=== PATIENT | male | born 1960 | race Caucasian/White ===

== ENCOUNTER 2017-12-07 10:36 | Emergency (ER) | payer OTHER ==
[~2017-12-07] VITALS: Ht 182.9 cm; Wt 72.6 kg
[~2017-12-07 10:36] MED LIST: ALBU90OI61 INH; BACITO TP; CYCL10 PO; HYDACE5 PO; HYDR1TAB94 PO; METPRE4DP PO; OXYACE5T PO; OXYACE7.5T PO; PRED20 PO; RXOXYACE PO; SPACE CHAMBER1 EACH MC; Zithromax250 MG PO
[2017-12-07] MEDS ORDERED: Ultram50 MG PO (11:18)
[2017-12-07] MEDS ORDERED: Robaxin500 MG PO (11:18)
[2017-12-07] MEDS ORDERED: METPRE4DP PO (11:18)
== END 2017-12-07 11:32 | disposition home or self-care (01) ==
LOC: ER 10:36
DX: M54.41 Lumbago with sciatica, right side (principal); G89.29 Other chronic pain; Z87.891 Personal history of nicotine dependence
CPT/HCPCS: 96372; 99283; J1885

== ENCOUNTER 2019-08-25 14:04 | Observation (INO) | payer OTHER ==
[~2019-08-25] VITALS: Ht 188 cm; Wt 70.1 kg
[~2019-08-25 14:04] MED LIST changes: +ALBU90OI INH; +ROBITUSSIN COU237 ML PO; +Robaxin500 MG PO; +Ultram50 MG PO
[2019-08-25 14:32] LABS: BASOPHILS ABSOLUTE AUTO 0.06 K/mm3 (0.00-0.23); BASOPHILS PERCENT AUTO 0 % (0-2); EOSINOPHILS ABSOLUTE AUTO 0.12 K/mm3 (0.00-0.68); EOSINOPHILS PERCENT AUTO 1 % (0-6); Hematocrit 42.7 % (37.0-53.0); Hemoglobin 14.2 g/dL (13.5-17.5); IMMATURE GRAN PERCENT AUTO 1 % (0-1); LYMPHOCYTES ABSOLUTE AUTO 3.16 K/mm3 (0.84-5.20); LYMPHOCYTES PERCENT AUTO 24 % (21-46); MONOCYTES ABSOLUTE AUTO 0.85 K/mm3 (0.16-1.47); MONOCYTES PERCENT AUTO 6 % (4-13); Mean Corpuscular HGB 29.5 pg (26.0-34.0); Mean Corpuscular HGB Conc 33.3 g/dL (31.5-36.5); Mean Corpuscular Volume 89 fL (80-100); Mean Platelet Volume 9.5 fL (9.1-12.4); NEUTROPHILS ABSOLUTE AUTO 9.18 K/mm3 (1.96-9.15); NEUTROPHILS PERCENT AUTO 68 % (41-73); Platelet Count 282 K/mm3 (150-400); RDW Coefficient Variation 12.3 % (11.7-14.2); RDW Standard Deviation 40.1 fL (35.1-46.3); Red Blood Cell Count 4.81 M/mm3 (4.30-5.90); White Blood Cell Count 13.47 K/mm3 (4.00-11.30)
[2019-08-25 14:50] LABS: International Normalized Ratio 1.04; Prothrombin Time Results 11.1 Sec (9.7-11.5)
[2019-08-25 14:55] LABS: Alanine Aminotransfer (ALT/SGP 44 U/L (12-78); Albumin, Blood 4.3 g/dL (3.4-5.0); Albumin/Globulin Ratio 1.5 (0.8-1.8); Alk Phos 62 U/L (50-136); Anion Gap 4 mmol/L (6-16); Aspartate Aminotrans (AST/SGOT 49 U/L (12-37); Bilirubin, Total 0.5 mg/dL (0.1-1.0); Blood Urea Nitrogen 16 mg/dL (8-24); Bun/Creatinine Ratio 16.2 (12.0-20.0); CO2, Blood 27 mmol/L (21-32); Calcium, Blood 8.8 mg/dL (8.5-10.1); Chloride, Blood 106 mmol/L (98-108); Creatinine, Blood 0.99 mg/dL (0.60-1.20); Globulin, Blood 2.9 g/dL (2.2-4.0); Glomerular Filtration Rate >60 (60-); Glucose, Blood 146 mg/dL (70-99); Potassium, Blood 3.6 mmol/L (3.5-5.5); Sodium, Blood 137 mmol/L (136-145); Total Protein, Blood 7.2 g/dL (6.4-8.2)
--- NOTE | 2019-08-25 19:52 | NUR ---
SUMMARY PT IS A&O X4, VSS, RESP SHALLOW DUE TO INCREASED PAIN. O2 SATS REMAIN >95% ON RA. PT MEDICATED FOR PAIN/NAUSEA X1. ADMISSION ASSESSMENT COMPLETED. REPORT GIVEN TO MARK RN. CALL LIGHT IN REACH
--- NOTE | 2019-08-26 04:21 | NUR ---
PT VSS T/O NIGHT; SATS >93% ON RA. RESP SHALLOW, DEEP BREATHING EXERCISES ENCOURAGED. PT REMAINS QUITE PAINFUL W/MVMT, PAIN MGD W/IV DILAUDID W/REP RELIEF. ATTEMPTED PO PAIN MEDS, HOWEVER, PT HAD N/V W/PO INTAKE. ZOFRAN GIVEN X2. PT WAS ABLE TO KEEP FEW CRACKERS AND FLUIDS DOWN LATER IN NIGHT. PT USING CALL LIGHT FOR ASSISTANCE. PLAN FOR REPEAT CXR THIS AM. WILL CONT TO MONITOR UNTIL REP GIVEN TO DAY RN.
--- NOTE | 2019-08-26 15:35 | NUR ---
SUMMARY: NO ACUTE CHANGE TODAY. A/O, VSS. PT CONTINUES TO HAVE PAIN WITH MOVEMENT AND INTERMITTANT NAUSEA. MEDICATED PER EMAR. ENCOURAGING MOVEMENT. PT ABLE TO SIT AT SIDE OF BED X2 AND RECEIVED BEDBATH AFTER BEING PREMEDICATED WITH DILAUDID. PT MOM AT BEDSIDE. WILL CTM AND REPORT TO MARK CRAIG.
--- NOTE | 2019-08-27 07:25 | NUR ---
recvd report from previous shift RN Alysia, pt lying in bed, a/o x 4, pleasant/cooperative, bed rails up x 2, bed in lowest position, call light within reach
--- NOTE | 2019-08-27 09:50 | NUR ---
PT working with patient
--- NOTE | 2019-08-27 14:03 | NUR ---
pt's sister called to get an update of pt's condition
--- NOTE | 2019-08-27 19:59 | NUR ---
shift summary: vss, no acute changes. pt remains a/o x 4, pleasant/cooperative. pt's sister visited this shift. pt reports pain at 7/10 prior to analgesia per mar, decrased to 4-5/10 following medicating. pt reports he is able to sleep this afternoon, "which is what I need". pt reports nauseousness with food and PO pain medication, emesis x 1 this shift during PT. pt up in chair this shift, independent in room. Lungs with crepitous in L lower lobe. encouraged pt to deep breath slowly, ambulate and be up in room.
--- NOTE | 2019-08-28 04:12 | NUR ---
SHIFT SUMMARY NO ACUTE CHANGES THIS SHIFT, A/OX4 WITH VSS. AMBULATED IN HALLWAYS AND IS IND IN ROOM. INCREASED PO INTAKE. MEDICATED ONCE WITH ONE TAB PO PAIN MEDICATION, PER EMAR. ENCOURAGED DEEP, SLOW BREATHING. APPEARS TO HAVE SLEPT T/O MOST OF SHIFT. IS CURRENTLY RESTING/SLEEPING IN BED WITH CALL LIGHT IN REACH. WILL CONT TO MONITOR AND GIVE REPORT TO ONCOMING RN.
[2019-08-28 05:08] LABS: BASOPHILS ABSOLUTE AUTO 0.04 K/mm3 (0.00-0.23); BASOPHILS PERCENT AUTO 0 % (0-2); EOSINOPHILS ABSOLUTE AUTO 0.21 K/mm3 (0.00-0.68); EOSINOPHILS PERCENT AUTO 2 % (0-6); Hematocrit 38.3 % (37.0-53.0); Hemoglobin 12.4 g/dL (13.5-17.5); IMMATURE GRAN ABSOLUTE AUTO 0.04 K/mm3 (0.00-0.10); IMMATURE GRAN PERCENT AUTO 0 % (0-1); LYMPHOCYTES PERCENT AUTO 19 % (21-46); MONOCYTES ABSOLUTE AUTO 1.27 K/mm3 (0.16-1.47); MONOCYTES PERCENT AUTO 10 % (4-13); Mean Corpuscular HGB 29.2 pg (26.0-34.0); Mean Corpuscular HGB Conc 32.4 g/dL (31.5-36.5); Mean Corpuscular Volume 90 fL (80-100); Mean Platelet Volume 9.9 fL (9.1-12.4); NEUTROPHILS ABSOLUTE AUTO 8.33 K/mm3 (1.96-9.15); NEUTROPHILS PERCENT AUTO 68 % (41-73); Platelet Count 230 K/mm3 (150-400); RDW Coefficient Variation 12.6 % (11.7-14.2); RDW Standard Deviation 41.7 fL (35.1-46.3); Red Blood Cell Count 4.24 M/mm3 (4.30-5.90); White Blood Cell Count 12.19 K/mm3 (4.00-11.30)
[2019-08-28 05:26] LABS: Anion Gap 5 mmol/L (6-16); Blood Urea Nitrogen 23 mg/dL (8-24); Bun/Creatinine Ratio 24.6 (12.0-20.0); CO2, Blood 30 mmol/L (21-32); Calcium, Blood 8.4 mg/dL (8.5-10.1); Chloride, Blood 104 mmol/L (98-108); Creatinine, Blood 0.93 mg/dL (0.60-1.20); Glomerular Filtration Rate >60 (60-); Glucose, Blood 104 mg/dL (70-99); Phosphorus, Blood 3.4 mg/dL (2.5-4.9); Potassium, Blood 4.1 mmol/L (3.5-5.5); Sodium, Blood 139 mmol/L (136-145)
[2019-08-28] MEDS ORDERED: ONDA4ODT PO (11:56)
[2019-08-28] MEDS ORDERED: OXYC5 PO (11:57)
--- NOTE | 2019-08-28 17:01 | NUR ---
DISCHARGE SUMMARY PT LEFT FLOOR WITH ALL PERSONAL POSSESSIONS, INCLUDING DC INSTRUCTIONS AND 1 NARC AND 1 ZOFRAN SCRIPT, TO GO HOME WITH MOM. DC INSTRUCTIONS PROVIDED. PT REP UNDERSTANDING THOSE INSTRUCTIONS INCLUDING FU APPT SCHEDULED WITH PCP, SURGEON FU IN 1 MONTH, TCDB, SHORT FREQUENT AMBULATION, SPLINTING EDU PROVIDED. IV DC'D.
== END 2019-08-28 16:45 | disposition home or self-care (01) ==
LOC: ER 14:04 → SURS 14:05
PROVIDERS: Emergency Medicine; ADMIT Surgery
DX: S27.0XXA Traumatic pneumothorax, initial encounter (principal); S22.42XA Multiple fractures of ribs, left side, initial encounter for closed fracture; S32.019A Unspecified fracture of first lumbar vertebra, initial encounter for closed fracture; S32.029A Unspecified fracture of second lumbar vertebra, initial encounter for closed fracture; S32.039A Unspecified fracture of third lumbar vertebra, initial encounter for closed fracture; V29.9XXA Motorcycle rider (driver) (passenger) injured in unspecified traffic accident, initial encounter; Z87.891 Personal history of nicotine dependence
CPT/HCPCS: 36415; 70450; 71045; 71046; 71260; 72125; 72170; 74177; 80048; 80053; 83690; 83735; 84100; 85025; 85610; 86850; 86900; 86901; 94762; 96374-59; 96375-59; 96376-59; 97116; 97162; 99285-25; J1170; J1885; J2405; J7120; L0160; Q9967

== ENCOUNTER 2020-05-27 13:00 | Emergency (ER) | payer OTHER ==
[~2020-05-27] VITALS: Ht 182.9 cm; Wt 74.8 kg
[~2020-05-27 13:00] MED LIST changes: +ONDA4ODT PO; +OXYC5 PO
[2020-05-27] MEDS ORDERED: IBUP600 PO (14:49)
[2020-05-27] MEDS ORDERED: Ultram50 MG PO (14:49)
[2020-05-27] MEDS ORDERED: Prednisone20 MG PO (14:49)
== END 2020-05-27 15:10 | disposition home or self-care (01) ==
LOC: ER 13:00
DX: M54.41 Lumbago with sciatica, right side (principal); Z87.891 Personal history of nicotine dependence; Z79.899 Other long term (current) drug therapy
CPT/HCPCS: 72100; 96372; 99283-25; A9270-GY; J1885; J7512

== ENCOUNTER 2023-06-25 08:26 | Emergency (ER) | payer OTHER ==
[~2023-06-25] VITALS: Ht 182.9 cm; Wt 77.1 kg
[~2023-06-25 08:26] MED LIST changes: +IBUP600 PO; +Prednisone20 MG PO
[2023-06-25 08:42] LABS: BASOPHILS ABSOLUTE AUTO 0.02 K/mm3 (0.00-0.23); BASOPHILS PERCENT AUTO 0 % (0-2); EOSINOPHILS PERCENT AUTO 0 % (0-6); Hematocrit 45.5 % (37.0-53.0); Hemoglobin 15.4 g/dL (13.5-17.5); IMMATURE GRAN ABSOLUTE AUTO 0.02 K/mm3 (0.00-0.10); IMMATURE GRAN PERCENT AUTO 0 % (0-1); LYMPHOCYTES ABSOLUTE AUTO 0.94 K/mm3 (0.84-5.20); LYMPHOCYTES PERCENT AUTO 12 % (21-46); MONOCYTES ABSOLUTE AUTO 0.97 K/mm3 (0.16-1.47); MONOCYTES PERCENT AUTO 13 % (4-13); Mean Corpuscular HGB 29.7 pg (26.0-34.0); Mean Corpuscular HGB Conc 33.8 g/dL (31.5-36.5); Mean Corpuscular Volume 88 fL (80-100); Mean Platelet Volume 9.5 fL (9.1-12.4); NEUTROPHILS ABSOLUTE AUTO 5.68 K/mm3 (1.96-9.15); NEUTROPHILS PERCENT AUTO 74 % (41-73); Platelet Count 225 K/mm3 (150-400); RDW Standard Deviation 41.7 fL (35.1-46.3); Red Blood Cell Count 5.18 M/mm3 (4.30-5.90); White Blood Cell Count 7.63 K/mm3 (4.00-11.30)
[2023-06-25 09:06] LABS: Albumin/Globulin Ratio 1.1 (0.8-1.8); Bilirubin, Direct 0.1 mg/dL (0.0-0.3); Bilirubin, Indirect 0.3 mg/dL (0.1-0.7); Bilirubin, Total 0.4 mg/dL (0.1-1.0); Bun/Creatinine Ratio 21.4 (12.0-20.0); Calcium, Blood 8.8 mg/dL (8.5-10.1); Creatinine, Blood 1.03 mg/dL (0.60-1.20); Globulin, Blood 3.8 g/dL (2.2-4.0); Magnesium, Blood 2.2 mg/dL (1.6-2.4); Potassium, Blood 3.8 mmol/L (3.5-5.5); Total Protein, Blood 7.8 g/dL (6.4-8.2)
[2023-06-25 09:45] LABS: Influenza B, PCR NEGATIVE (NEGATIVE); Resp Syncytial Virus, PCR NEGATIVE (NEGATIVE); SARS-Cov-2 (COVID-19) PCR, MMC NEGATIVE (NEGATIVE)
[2023-06-25 09:57] LABS: Influenza A, PCR POSITIVE (NEGATIVE)
[2023-06-25 10:01] LABS: Source, Urine Clean Catch
[2023-06-25 10:10] LABS: Appearance, Urine Cloudy (Clear); Bilirubin, Urine Neg (Neg); Blood, Urine 3+ (Neg); Color, Urine Yellow (P-Yellow); Glucose Qualitative, Urine Neg (Neg); Ketones, Urine 1+ (Neg); Leukocyte Esterase, Urine Neg (Neg); Nitrite, Urine Neg (Neg); Protein, Urine 2+ (Neg); Specific Gravity, Urine 1.025 (1.003-1.022); Urobilinogen, Urine NORM (Normal)
[2023-06-25 10:33] LABS: Bacteria Few /hpf; Granular Casts 0-2 /lpf (0); Mucus Light (0-Heavy); Squamous Epithelial Cells Few /hpf (Few); White Blood Cells, Urine 0-2 /hpf (0-5)
[2023-06-25] MEDS ORDERED: ONDA4ODT MM (11:20)
[2023-06-25 11:30] VITALS: BP 116/83
== END 2023-06-25 11:44 | disposition home or self-care (01) ==
LOC: ER 08:26
PROVIDERS: Student in an Organized Health Care Education/Training Program
DX: J10.1 Influenza due to other identified influenza virus with other respiratory manifestations (principal); E86.0 Dehydration; Z87.891 Personal history of nicotine dependence
CPT/HCPCS: 0241U; 80048; 80076; 81001; 83690; 83735; 85025; 93005; 93010; 96360; 99284-25; J2405; J7030

== ENCOUNTER 2023-11-01 07:36 | Day surgery (SDC) | payer OTHER ==
[2023-11-01] VITALS (17 sets, daily range): BP systolic 82–123; BP diastolic 63–95
[~2023-11-01] VITALS: Ht 182.9 cm; Wt 77.4 kg
[~2023-11-01 07:36] MED LIST changes: +ASCO500 PO; +ERGO400 PO; +Lactated Ringer's 1,000 ML IV SCH; +ONDA4ODT MM
[2023-11-01] MEDS ORDERED: propofoL 20 ML IV ONE (08:50)
--- NOTE | 2023-11-01 09:01 | NUR ---
11/01/23 0901 Ignacio Otriz HISTORY, CHART, MEDICATIONS AND ALLERGIES REVIEWED BEFORE START OF PROCEDURE. PATIENT CONFIRMS NPO STATUS AND AGREES WITH SCHEDULED PROCEDURE. 3-LEAD EKG REVIEWED WITH PHYSICIAN PRIOR TO START OF PROCEDURE. MONITOR INTACT WITH CONTINUOUS PULSE OXIMETRY,CAPNOGRAPHY, 3-LEAD EKG, INTERMITTENT BP. SUPPLEMENTAL O2 TO BE TITRATED THROUGHOUT PROCEDURE TO MAINTAIN O2 SATURATION ABOVE 90%. PATIENT DETERMINED TO BE ASA APPROPRIATE FOR PROPOFOL SEDATION PRIOR TO START OF PROCEDURE BY
--- NOTE | 2023-11-01 09:25 | NUR ---
0920 REPORT RECEIVED FROM RENATA CRAIG. VSS. PT ON RA. PT ABLE TO REPOSITION SELF IN BED. PT REQUESTING PO FLUIDS AND TOLERATING THEM WELL. PT DENIES PAIN, NAUSEA OR OTHER DISCOMFORTS.
== END 2023-11-01 09:50 | disposition home or self-care (01) ==
LOC: ORSCMMR 07:36 → ORD 08:30 → ORSCMMR 08:30
PROVIDERS: Internal Medicine Gastroenterology
PROC: 0DBC8ZX Excision of Ileocecal Valve, Via Natural or Artificial Opening Endoscopic, Diagnostic (ICD-10-PCS; principal; 2023-11-01 08:30)
DX: Z12.11 Encounter for screening for malignant neoplasm of colon (principal); K63.5 Polyp of colon; Z87.891 Personal history of nicotine dependence
CPT/HCPCS: 88305; J2704; J7120

== ENCOUNTER → 2024-04-30 | Outpatient (CLI) | payer OTHER ==
[~2024-04-30] MED LIST changes: -Lactated Ringer's 1,000 ML IV SCH
[2024-04-30 19:50] LABS: BASOPHILS ABSOLUTE AUTO 0.05 K/mm3 (0.00-0.23); BASOPHILS PERCENT AUTO 1 % (0-2); EOSINOPHILS ABSOLUTE AUTO 0.15 K/mm3 (0.00-0.68); EOSINOPHILS PERCENT AUTO 2 % (0-6); Hematocrit 42.7 % (37.0-53.0); Hemoglobin 14.3 g/dL (13.5-17.5); IMMATURE GRAN ABSOLUTE AUTO 0.02 K/mm3 (0.00-0.10); IMMATURE GRAN PERCENT AUTO 0 % (0-1); LYMPHOCYTES ABSOLUTE AUTO 2.74 K/mm3 (0.84-5.20); LYMPHOCYTES PERCENT AUTO 34 % (21-46); MONOCYTES ABSOLUTE AUTO 0.66 K/mm3 (0.16-1.47); MONOCYTES PERCENT AUTO 8 % (4-13); Mean Corpuscular HGB 29.2 pg (26.0-34.0); Mean Corpuscular HGB Conc 33.5 g/dL (31.5-36.5); Mean Corpuscular Volume 87 fL (80-100); Mean Platelet Volume 10.3 fL (9.1-12.4); NEUTROPHILS ABSOLUTE AUTO 4.54 K/mm3 (1.96-9.15); NEUTROPHILS PERCENT AUTO 56 % (41-73); Platelet Count 285 K/mm3 (150-400); RDW Coefficient Variation 13.3 % (11.7-14.2); RDW Standard Deviation 42.9 fL (35.1-46.3); Red Blood Cell Count 4.89 M/mm3 (4.30-5.90); White Blood Cell Count 8.16 K/mm3 (4.00-11.30)
[2024-04-30 21:38] LABS: Alanine Aminotransfer (ALT/SGP 41 U/L (12-78); Albumin/Globulin Ratio 1.4 (0.8-1.8); Alk Phos 75 U/L (50-136); Anion Gap 10 mmol/L (3-11); Aspartate Aminotrans (AST/SGOT 24 U/L (12-37); Bilirubin, Total 0.4 mg/dL (0.1-1.0); Blood Urea Nitrogen 19 mg/dL (8-24); Bun/Creatinine Ratio 18.4 (12.0-20.0); CHOL/HDL RATIO 2.4; CO2, Blood 25 mmol/L (21-32); Calcium, Blood 8.8 mg/dL (8.5-10.1); Chloride, Blood 107 mmol/L (98-108); Cholesterol 160 mg/dL (50-200); Creatinine, Blood 1.03 mg/dL (0.60-1.20); Globulin, Blood 2.9 g/dL (2.2-4.0); Glomerular Filtration Rate 82 (60-); Glucose, Blood 119 mg/dL (70-99); HDL Cholesterol 67 mg/dL (>39); LDL/HDL RATIO 1.2; Low Density Lipoprotein Chol 79 mg/dL (0-110); Sodium, Blood 138 mmol/L (136-145); Total Protein, Blood 6.9 g/dL (6.4-8.2); Triglycerides 69 mg/dL (30-160); Very Low Density Lipoprot Chol 13 mg/dL (6-32)
== END ==
LOC: LAB 19:34 → LAB SHORT 19:34
PROVIDERS: Family Medicine
DX: Z00.01 Encounter for general adult medical examination with abnormal findings (principal); Z12.5 Encounter for screening for malignant neoplasm of prostate
CPT/HCPCS: 80053; 80061; 85025; G0103